=== PATIENT | male | born 1970 | race African-American/Black ===

== ENCOUNTER → 2018-02-19 | Outpatient (CLI) | payer MEDICARE ==
[~2018-02-19] MED LIST: REGADENOSON 0.4 MG/5 ML IV ONE
== END | disposition home or self-care (01) ==
LOC: NM 06:30
PROVIDERS: ATTEND Internal Medicine Cardiovascular Disease
DX: I10 Essential (primary) hypertension (principal); J44.9 Chronic obstructive pulmonary disease, unspecified; R07.89 Other chest pain; Z87.891 Personal history of nicotine dependence
CPT/HCPCS: 78452; 93017; A9500; J2785